=== PATIENT | female | born 1950 | race African-American/Black ===

== ENCOUNTER 2020-12-09 14:22 | Inpatient (IN) | payer MEDICARE ==
[~2020-12-09] VITALS: Ht 154.9 cm; Wt 65.8 kg
--- NOTE | 2020-12-09 14:59 | PHYS DOC ---
Past History Past Surgical History: Hip Replacement, Hysterectomy, Knee Replacement Alcohol Use: Rarely General Adult EDM: Chief Complaint: SHORTNESS OF BREATH HPI: HPI: 70-year-old female presents with shortness of breath. She has been having incr easing symptoms of shortness of breath for the last 2 days. She was out shopping today and it was worse so she decided to come in for evaluation. She is pretty sure that she is wheezing. She has a history of COPD. She has been in the ER previously, but no admissions. She uses Symbicort and albuterol daily. She has used her albuterol 3 times today. She denies fever or chills. She has no cardiac history. Her last stress test or cardiac cath was a few years ago and it was reported to be unremarkable. She is vaccinated against COVID-19. Review of Systems: Review of Systems: Constitutional: Denies fever or chills Eyes: Denies change in visual acuity HENT: Denies nasal congestion or sore throat Respiratory: shortness of breath Cardiovascular: Denies chest pain or edema GI: Denies abdominal pain, nausea, vomiting, bloody stools or diarrhea : Denies dysuria Musculoskeletal: Denies back pain or joint pain Integument: Denies rash Neurologic: Denies headache, focal weakness or sensory changes Endocrine: Denies polyuria or polydipsia Lymphatic: Denies swollen glands Psychiatric: Denies depression or anxiety Allergies: Allergies: Allergies Coded Allergies Type Severity Reaction Last Updated Verified No Known Drug Allergies 12/09/20 No Physical Exam: PE: Constitutional: Well developed, well nourished, no acute distress, non-toxic appearance. [] HENT: Normocephalic, atraumatic, bilateral external ears normal, oropharynx moist, no oral exudates, nose normal. [] Eyes: PERRLA, EOMI, conjunctiva normal, no discharge. [] Neck: Normal range of motion, no tenderness, supple, no stridor. [] Cardiovascular: Heart rate regular rhythm, no murmur [] Lungs & Thorax: Bilateral breath sounds with expiratory wheezing throughout. [] Abdomen: Bowel sounds normal, soft, no tenderness, no masses, no pulsatile masses. [] Skin: Warm, dry, no erythema, no rash. [] Back: No tenderness, no CVA tenderness. [] Extremities: No tenderness, no cyanosis, no clubbing, ROM intact, no edema. [] Neurologic: Alert and oriented X 3, normal motor function, normal sensory function, no focal deficits noted. [] Psychologic: Affect normal, judgement normal, mood normal. [] Current Patient Data: Vital Signs: Vital Signs Date Time Temp Pulse Resp B/P (MAP) Pulse Ox O2 Delivery O2 Flow Rate FiO2 12/09/20 14:40 98.7 95 18 141/84 (103) 95 Room Air EKG: EKG: [] Radiology/Procedures: Radiology/Procedures: [] Impressions: Site ID: [id number] EXAMINATION: XR CHEST 1V. HISTORY: 70 years Female Reason: SoB / Spl. Instructions: / History: . . COMPARISON: May 17, 2018. Findings: The lungs are clear. The heart size is normal. There is no effusion or pneumothorax. The mediastinum and yadiel appear unremarkable. Impression: Unremarkable study. Electronically signed by: Claudia Roberson MD (12/09/2020 3:19 PM) [id number] DICTATED AND SIGNED BY: CLAUDIA ROBERSON MD DATE: 12/09/20 1517 CC: MACY ONEILL DO; NON,STAFF ~MTH0 0 Heart Score: C/O Chest Pain: N/A Risk Factors: Risk Factors: DM, Current or recent (<one month) smoker, HTN, HLP, family history of CAD, obesity. Risk Scores: Score 0 - 3: 2.5% MACE over next 6 weeks - Discharge Home Score 4 - 6: 20.3% MACE over next 6 weeks - Admit for Clinical Observation Score 7 - 10: 72.7% MACE over next 6 weeks - Early Invasive Strategies Course & Med Decision Making: Course & Med Decision Making Pertinent Labs and Imaging studies reviewed. (See chart for details) The patient's labs are remarkable for an elevated white count and a creatinine 1.6. I have no previous for comparison in the chart. Her chest x-ray is negative for acute findings. I given the patient 2 treatments of DuoNeb and 125 Solu-Medrol. The patient still has considerable wheezing and is only 91% on room air at rest. With activity her oxygen saturation drops. I have advised the patient that she should be admitted to the hospital for further management. She has reluctantly agreed. I spoke with hospitalist, Dr. Begum and he has accepted the patient for admission. [] Dragon Disclaimer: Dragon Disclaimer: This electronic medical record was generated, in whole or in part, using a voice recognition dictation system. Departure Departure: Impression: Primary Impression: COPD exacerbation Disposition: ADMITTED INPATIENT Admitting Physician: Damián Begum Condition: STABLE Referrals: NON,STAFF (PCP) MACY ONEILL DO Dec 09, 2020 14:59
[2020-12-09] MEDS ORDERED: IPRATRPIUM/ALBUTEROL 0.5/2.5MG 3 ML NEBU. NEB ONE ×2 (15:00→16:15)
[2020-12-09] MEDS ORDERED: methylPREDNISolone SOD SUCC PF 125 MG/2 ML VIAL. IV ONE (15:00)
--- NOTE | 2020-12-09 15:22 | RAD ---
Site ID: [id number] EXAMINATION: XR CHEST 1V. HISTORY: 70 years Female Reason: SoB / Spl. Instructions: / History: . . COMPARISON: May 17, 2018. Findings: The lungs are clear. The heart size is normal. There is no effusion or pneumothorax. The mediastinum and yadiel appear unremarkable. Impression: Unremarkable study. Electronically signed by: Dominic Roberson MD (12/09/2020 3:19 PM) [id number]
[2020-12-09 15:31] LABS: BASO # 0.2 x10^3/uL (0.0-0.2); BASO % 2 % (0-3); EOS # 0.3 x10^3/uL (0.0-0.7); EOS % 2 % (0-3); HEMATOCRIT 33.5 % (36.0-47.0); HEMOGLOBIN 10.7 g/dL (12.0-15.5); LYMPH # 1.9 x10^3/uL (1.0-4.8); LYMPH % 14 % (24-48); MEAN CORPUSCULAR HEMOGLOBIN 27 pg (25-35); MEAN CORPUSCULAR HGB CONC 32 g/dL (31-37); MEAN CORPUSCULAR VOLUME 84 fL (79-100); MONO # 1.1 x10^3/uL (0.0-1.1); MONO % 8 % (0-9); NEUT # 10.2 x10^3uL (1.8-7.7); NEUT % 74 % (31-73); PLATELET COUNT 281 x10^3/uL (140-400); RED CELL DISTRIBUTION WIDTH 19.5 % (11.5-14.5); WHITE BLOOD COUNT 13.7 x10^3/uL (4.0-11.0)
[2020-12-09 15:51] LABS: CALCIUM 9.3 mg/dL (8.5-10.1); CREATININE 1.6 mg/dL (0.6-1.0); GFR 38.8; POTASSIUM 4.2 mmol/L (3.5-5.1)
[2020-12-09 15:55] LABS: ALBUMIN 3.9 g/dL (3.4-5.0); TOTAL BILIRUBIN 0.3 mg/dL (0.2-1.0); TOTAL PROTEIN 7.8 g/dL (6.4-8.2)
[2020-12-09] MEDS ORDERED: ONDANSETRON PF 4 MG/2 ML VIAL. IVP PRN (16:15)
[2020-12-09 18:45] VITALS: BP 113/71
[2020-12-10 00:18] VITALS: BP 150/68
--- NOTE | 2020-12-10 03:50 | EKG ---
[address] [address] Test Date: 2020-12-09 Test Time: 15:10:53 Pat Name: MATHIEU RHODES Department: Room: 123 A Gender: F Surveying Crew Rodman: SAMEER : 1950 Requested By: MACY ONEILL Order Number: [id number] Reading MD: Parveen Flores Measurements Intervals [place] Rate: 92 P: 90 LA: 178 QRS: 69 QRSD: 76 T: 48 QT: 364 QTc: 455 Interpretive Statements SINUS RHYTHM ATRIAL PREMATURE COMPLEX(ES) Electronically Signed On 12-11-2020 13:30:16 CDT by Parveen Flores
[2020-12-10] MEDS: IPRATRPIUM/ALBUTEROL 0.5/2.5MG 3 ML NEBU. NEB SCH ×3 (03:54→11:36)
[2020-12-10] MEDS ORDERED: C.DIFF MED SCREEN BY RX. MC ONE (04:45)
[2020-12-10 06:26] VITALS: BP 113/60
[2020-12-10 10:39] VITALS: BP 108/50
--- NOTE | 2020-12-10 12:47 | EKG ---
[address] [address] Test Date: 2020-12-10 Test Time: 12:21:50 Pat Name: MATHIEU RHODES Department: Room: 123 A Gender: F Senior Validation Engineer: : 1950 Requested By: ALEXX WHEELER Order Number: [id number] Reading MD: Parveen Flores Measurements Intervals [place] Rate: 117 P: 59 AL: 158 QRS: 57 QRSD: 74 T: 28 QT: 322 QTc: 454 Interpretive Statements SINUS TACHYCARDIA ATRIAL PREMATURE COMPLEX(ES) Electronically Signed On 12-11-2020 13:06:58 CDT by Parveen Flores
[2020-12-10] MEDS ORDERED: DICL50TA4 PO (13:04)
[2020-12-10] MEDS ORDERED: GABA-586 PO (13:04)
[2020-12-10] MEDS ORDERED: PANT40TA6 PO (13:04)
[2020-12-10] MEDS ORDERED: METF500T16 PO (13:04)
[2020-12-10] MEDS ORDERED: LIPITOR80 MG PO (13:04)
[2020-12-10] MEDS ORDERED: TRIA1CAP3 PO (13:04)
[2020-12-10] MEDS ORDERED: TIZA-75 PO (13:04)
[2020-12-10] MEDS ORDERED: LOSA25TA11 PO (13:04)
[2020-12-10] MEDS ORDERED: ESCITALOPRAM OX10 MG PO (13:04)
[2020-12-10] MEDS ORDERED: TEMA30CA PO (13:04)
[2020-12-10] MEDS ORDERED: tiZANidine 4 MG TABLET. PO PRN (13:15)
[2020-12-10] MEDS ORDERED: IPRATROPIUM/ALBUTEROL 20/100mcg/INH INHALER. INH PRN (13:15)
[2020-12-10] MEDS ORDERED: TEMAZEPAM 15 MG CAPSULE PO PRN (13:30)
[2020-12-10] MEDS: methylPREDNISolone SOD SUCC PF 40 MG/ML VIAL. IV SCH ×2 (14:21→22:26)
[2020-12-10 15:00] VITALS: BP 126/72
[2020-12-10] MEDS ORDERED: IPRATRPIUM/ALBUTEROL 0.5/2.5MG 3 ML NEBU. NEB PRN (16:00)
[2020-12-10] MEDS: ACETAMINOPHEN 325 MG TABLET PO PRN (18:40)
[2020-12-10 18:59] VITALS: BP 176/75
[2020-12-10] MEDS: BUDESONIDE 0.5 MG/2 ML NEBU NEB SCH (19:34)
[2020-12-10] MEDS ORDERED: BUDESONIDE 0.5 MG/2 ML NEBU NEB SCH (20:00)
[2020-12-10] MEDS: GABAPENTIN 300 MG CAPSULE. PO SCH (20:43)
[2020-12-10] MEDS: DICLOFENAC SODIUM 25 MG TABLET.DR PO SCH (20:58)
[2020-12-10] MEDS ORDERED: MONTELUKAST 10 MG TABLET. PO SCH (21:00)
[2020-12-10] MEDS ORDERED: metFORMIN 500 MG TABLET PO SCH (21:00)
--- NOTE | 2020-12-10 21:11 | PN ---
DATE: 12/10/2020 SUBJECTIVE: The patient is sitting on the edge of the bed, continued to complain of cough with scanty whitish sputum. She did have chest tightness and wheezing. PHYSICAL EXAMINATION: GENERAL: When I saw her this afternoon, she was pale, no jaundice, cyanosis or thyromegaly. No jugular venous distention. No lower limb edema. VITAL SIGNS: Her heart rate was 107, blood pressure was 108/50, temperature was 98.6, respiratory rate was 18 and oxygen saturation was 88% on room air, up to 92% on 2 liters of oxygen. HEAD, EYES, EARS, NOSE, AND THROAT: Normocephalic, atraumatic. NECK: Supple. HEART: Normal first and second heart sounds, no gallop or murmur. CHEST: Shows central trachea, equal, equally reduced expansion, reduced air entry, vesicular breath sounds with bilateral scattered rhonchi, much less than yesterday. I could not appreciate any crepitation. ABDOMEN: Distended, soft, nontender. NEUROLOGIC: She was grossly intact. ASSESSMENT: 1. Acute hypoxic respiratory failure. 2. Chronic obstructive pulmonary disease exacerbation. 3. The patient has multiple other medical problems including: A. Type 2 diabetes mellitus. B. Hypertension. C. Hyperlipidemia. D. Gastroesophageal reflux disease. PLAN: To continue with Combivent inhaler. Continue with Solu-Medrol. We will start her on DuoNebs once her COVID-19 status clarified. If her symptoms improve by tomorrow, she can be discharged home on a tapering course of steroids. JOSI DR: Naida TID: [id number]
[2020-12-10 22:34] VITALS: BP 133/77
[2020-12-11 05:44] VITALS: BP 165/77
[2020-12-11] MEDS: ACETAMINOPHEN 325 MG TABLET PO PRN (06:17)
[2020-12-11] MEDS: methylPREDNISolone SOD SUCC PF 40 MG/ML VIAL. IV SCH (06:17)
--- NOTE | 2020-12-11 07:03 | HP ---
DATE OF SERVICE: 12/10/2020 ADMIT DATE: 12/09/2020 HISTORY OF PRESENT ILLNESS: The patient is a 70-year-old female patient visiting from [place], who came to the Emergency Room with a complaint of shortness of breath. Apparently, she has been having these symptoms of shortness of breath over the last 2 days, progressively worsening. She was shopping and it was worse, so she decided to come in for evaluation. She complained that she is wheezing and her chest is tight. She has a history of COPD. She has been in the Emergency Room previously, but no admission. She has never required any intubation and apparently, she had had what seemed to be lung function test before and she uses Symbicort and albuterol daily; and on the day of admission, she has used her albuterol about 3 times. Denied any fever or chills. Denied any cardiac history. She apparently had had a stress test done a few years ago and was reportedly normal. She was vaccinated against COVID using Moderna vaccine twice. On arrival to the Emergency Room, she was extensively investigated and had had lab work and imaging studies. Her chest x-ray showed the lungs are clear. The heart size is normal. There is no effusion or pneumothorax. The mediastinum and hilar appear unremarkable. The lab work showed that her white cell count was 13,700, hemoglobin 11, hematocrit 33, MCV 84, and a platelet count 281,000 with normal manual differential. Her chemistry showed a serum sodium 137, potassium 4.2, chloride 100, bicarbonate 28, anion gap of 9, BUN 20, creatinine 1.6. Estimated GFR was 39 mL per minute. Her glucose was 101, calcium was 9.3. Total bilirubin, AST, ALT, alkaline phosphatase were normal. Her troponin I high sensitivity was only 13 and total protein 7.8, albumin 3.9. Her coronavirus by rapid testing was negative. The patient was admitted with acute on chronic hypoxic respiratory failure, COPD exacerbation, was treated with nebulized treatment as well as Solu-Medrol. She has no fever and sputum was white. Chest x-ray showed no evidence of infiltrate and therefore, no antibiotics were started. PAST MEDICAL HISTORY: Significant for hypertension, hyperlipidemia, type 2 diabetes mellitus as well as chronic obstructive pulmonary disease. She also has gastroesophageal reflux disease. PAST SURGICAL HISTORY: Significant for left total hip arthroplasty, left breast biopsy, left lung biopsy, right knee arthroscopic surgery, tubal ligation, total abdominal hysterectomy, bilateral salpingo-oophorectomy. She has had colonoscopy and esophagogastroduodenoscopy. ALLERGIES: She has no known drug allergies. MEDICATIONS: She is currently on following medications: She is on tizanidine 4 mg twice a day, atorvastatin calcium 80 mg at bedtime, losartan potassium 25 mg once a day, diclofenac sodium 50 mg twice a day, gabapentin 300 mg twice a day, escitalopram oxalate 10 mg daily, temazepam 30 mg at bedtime, triamterene/hydrochlorothiazide 37.5/25 one tablet once a day, Protonix 40 mg once a day, metformin 500 mg at bedtime. FAMILY HISTORY: She has 4 sisters and 8 brothers. One of her sisters was killed by lightening. She has 4 brothers that are , one at the age of 90, one at the age of 85, of drowning, and one was killed in the war, and one was at age of 80 and had Parkinson's disease. Her father at age of 62 because of myocardial infarction and stroke. Mother at the age of 90 because of old age. SOCIAL HISTORY: She is , has 2 daughters and 2 sons. She continued to smoke, has been a smoker for more than 40 years. She does not drink alcohol or use recreational drugs. She is currently retired. 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 REVIEW OF SYSTEMS: The patient has open angle glaucoma, treated with laser treatment. She has bilateral cataracts that does not require surgery . Denied any headache, sensorineural deafness or tinnitus. Denied any nosebleed, stuffy nose or postnasal drip. Denied any sore throat, sore tongue, toothache, hoarseness of voice or difficulty swallowing. Denied any nausea, vomiting, diarrhea or constipation. Denied any hematemesis, melena or hematochezia. Denied any dysuria, frequency or hematuria. Did complain of chest tightness and shortness of breath, cough with whitish sputum. Did complain of orthopnea, but no paroxysmal nocturnal dyspnea. Denied any chills, rigors or fever. Denied any dizziness, lightheadedness or vertigo. PHYSICAL EXAMINATION: GENERAL: On arrival to the Emergency Room, the patient looked well and was clearly in no apparent respiratory distress. There was no pallor, jaundice, cyanosis or thyromegaly. No jugular venous distention. No lower limb edema. VITAL SIGNS: Her heart rate was 95, blood pressure was 141/84, temperature was 98.7, respiratory rate was 18 and oxygen saturation was 95% on room air. HEAD, EYES, EARS, NOSE, AND THROAT: Normocephalic, atraumatic. NECK: Supple. HEART: Showed normal first and second heart sounds. No gallop or murmur. CHEST: Showed central trachea, equally reduced expansion, reduced air entry, vesicular breath sounds and bilateral scattered rhonchi. I could not appreciate any crepitation. ABDOMEN: Distended, soft, nontender. NEUROLOGIC: She is awake, alert, responding appropriately. All cranial nerves are intact. She moves extremities without difficulty. She ambulates with a cane. She has had her left hip replaced recently. Her affect, judgment, and mood are normal. LABORATORY DATA: Her lab work on arrival to the Emergency Room showed a white cell count of 13,700, hemoglobin 11, hematocrit 33, MCV 84 and platelet count of 281,000 with normal manual differential. Her chemistry showed a serum sodium 137, potassium 4.2, chloride 100, bicarbonate 28, anion gap of 9, BUN 20, creatinine 1.6. Estimated GFR was 39 mL per minute. Her glucose 101, calcium was 9.3. Total bilirubin, AST, ALT normal. Alkaline phosphatase slightly elevated. Total protein 7.8, albumin 3.9. ASSESSMENT: In summary, this is a 70-year-old female patient who was admitted with: 1. Acute hypoxic respiratory failure. 2. Chronic obstructive pulmonary disease exacerbation. 3. She has multiple other medical problems including: A. Type 2 diabetes mellitus. B. Hypertension. C. Hyperlipidemia. D. Gastroesophageal reflux disease. PLAN: To continue with the steroids, bronchodilators, Mucinex, and Singulair. We will evaluate on a daily basis and probably she eventually can go home on a tapering course of steroids. RADHA/CHASE/CHEN DR: Naida TID: [id number]
[2020-12-11] MEDS ORDERED: TRIAMTERENE/HCTZ 37.5/25MG TABLET. PO SCH (09:00)
[2020-12-11] MEDS ORDERED: PANTOPRAZOLE 40 MG TABLET. PO SCH (09:00)
[2020-12-11] MEDS ORDERED: LOSARTAN 25 MG TABLET. PO SCH (09:00)
[2020-12-11] MEDS ORDERED: ATORVASTATIN CALCIUM 20 MG TABLET PO SCH (09:00)
[2020-12-11] MEDS ORDERED: CITALOPRAM 20 MG TABLET. PO SCH (09:00)
[2020-12-11] MEDS: BUDESONIDE 0.5 MG/2 ML NEBU NEB SCH (09:20)
[2020-12-11] MEDS: GABAPENTIN 300 MG CAPSULE. PO SCH (09:22)
[2020-12-11] MEDS: DICLOFENAC SODIUM 25 MG TABLET.DR PO SCH (09:23)
[2020-12-11 10:33] VITALS: BP 160/79
[2020-12-11] MEDS ORDERED: PRED20TA PO (11:12)
--- NOTE | 2020-12-11 11:52 | DS ---
DATE OF DISCHARGE: 12/11/2020 HOSPITAL COURSE: The patient is a 70-year-old female patient, visiting from [place], who came in with worsening shortness of breath, cough with scanty whitish sputum. She was admitted with acute hypoxic respiratory failure and COPD exacerbation, and was started on IV Solu-Medrol, nebulized albuterol and Atrovent and did well. Her oxygen saturation continues to be borderline, but her flight is tomorrow, going back home in [place]. PHYSICAL EXAMINATION: GENERAL: When I examined her this morning, she looked well and was clearly in no apparent respiratory distress. She was pale, not jaundiced, cyanosed, no lymphadenopathy, no thyromegaly, no jugular venous distention. No lower limb edema. VITAL SIGNS: Her heart rate was 90, blood pressure is 160/79, temperature was 98, respiratory rate was 18 and oxygen saturation was 91% on room air. HEAD, EYES, EARS, NOSE AND THROAT: Normocephalic, atraumatic. NECK: Supple. HEART: Showed normal first and second heart sounds, no gallop or murmur. CHEST: Shows central trachea, equally reduced expansion, reduced air entry, vesicular breath sounds. I could not appreciate any crepitation or rhonchi. NEUROLOGIC: She was awake, alert, responding appropriately. All cranial nerves intact. She moves extremities without difficulty. She ambulates without assistance or assistive devices. LABORATORY DATA: Within normal range. Her coronavirus by PCR was negative. DISCHARGE MEDICATIONS: She was discharged home to continue on tapering course of steroids, atorvastatin, calcium 80 mg once a day, diclofenac sodium 50 mg twice a day, escitalopram oxalate 10 mg once a day, gabapentin 300 mg twice a day, losartan potassium 25 mg once a day, metformin 500 mg at bedtime, Protonix 40 mg daily, temazepam 30 mg once a day, tizanidine 4 mg every 12 hourly, triamterene/hydrochlorothiazide 1 tablet once a day. She is also on albuterol inhaler 2 puffs every 4 hours as needed and Symbicort 1 puff twice a day. FINAL DISCHARGE DIAGNOSES: 1. Acute hypoxic respiratory failure. 2. Chronic obstructive pulmonary disease exacerbation. 3. The patient has multiple other medical problems including: A. Type 2 diabetes mellitus. B. Hypertension. C. Hyperlipidemia. D. Gastroesophageal reflux disease. E. Nicotine dependence. I have had lengthy discussion with the patient about quitting smoking and that she should follow up with her primary care physician and she might need to seek consultation with the lobster fisherman on arrival to her home in [place]. JUSTINO DR: Naida TID: [id number]
== END 2020-12-11 12:30 | disposition home or self-care (01) | DRG 189 ==
LOC: ER 14:22 → 1 SOUTH 16:15
PROVIDERS: ADMIT Internal Medicine; ATTEND Internal Medicine
DX: J96.21 Acute and chronic respiratory failure with hypoxia (principal); J44.1 Chronic obstructive pulmonary disease with (acute) exacerbation; E78.5 Hyperlipidemia, unspecified; I10 Essential (primary) hypertension; E11.9 Type 2 diabetes mellitus without complications; F17.200 Nicotine dependence, unspecified, uncomplicated; K21.9 Gastro-esophageal reflux disease without esophagitis; Z96.642 Presence of left artificial hip joint; Z96.659 Presence of unspecified artificial knee joint; Z20.822 Contact with and (suspected) exposure to COVID-19; Z82.0 Family history of epilepsy and other diseases of the nervous system; Z82.3 Family history of stroke; Z82.49 Family history of ischemic heart disease and other diseases of the circulatory system; Z90.710 Acquired absence of both cervix and uterus
CPT/HCPCS: 36415; 71045; 80053; 84484; 85025; 87426; 93005; 94640; 96374; 99406; J2920; J2930; U0003; 99285-25